=== PATIENT | male | born 1980 | race Caucasian/White ===

== ENCOUNTER 2019-11-29 18:37 | Inpatient (IN) | payer OTHER ==
[~2019-11-29] VITALS: Ht 162.6 cm; Wt 78.0 kg
[2019-11-29 19:40] LABS: BASOPHILS % (AUTO) 0.6 % (0.0-2.0); EOSINOPHILS % (AUTO) 0.7 % (1.0-6.0); HEMATOCRIT 46.6 % (41-53); LYMPHOCYTES # (AUTO) 2.2 K/uL (1.0-4.8); MEAN CORPUSCULAR HEMOGLOBIN 30.4 pg (26.0-34.0); MEAN CORPUSCULAR HGB CONC 34.2 G/dL (31.0-37.0); MEAN CORPUSCULAR VOLUME 89 fL (80-100); MONOCYTES # (AUTO) 0.7 K/uL (0.1-1.0); MONOCYTES % (AUTO) 7.8 % (2.0-9.0); NEUTROPHILS # (AUTO) 6.1 K/uL (1.8-7.7); NEUTROPHILS % (AUTO) 66.9 % (40.0-70.0); PLATELET COUNT (AUTO) 221 K/uL (150-450); RED BLOOD CELL COUNT(AUTO) 5.25 MIL/uL (4.50-5.90); RED CELL DISTRIBUTION WIDTH 13.6 % (11.5-14.5)
[2019-11-29] MEDS ORDERED: LOPERAMIDE HCL 2 MG CAPSULE PO PRN (19:45)
[2019-11-29] MEDS ORDERED: DOCUSATE SODIUM 100 MG CAPSULE PO PRN (19:45)
[2019-11-29] MEDS ORDERED: ALBUTEROL SULFATE HFA 90 MCG/PUFF 8 GM INHALER IH PRN (19:45)
[2019-11-29] MEDS ORDERED: MAGNESIUM HYDROXIDE SUSPENSION 30 ML UDCUP PO PRN (19:45)
[2019-11-29] MEDS ORDERED: CloNIDine HCL 0.1 MG TABLET PO PRN (19:45)
[2019-11-29] MEDS ORDERED: MAG HYDROX/AL HYDROX/SIMETH ES 30 ML SUSPENSION UDCUP PO PRN (19:45)
[2019-11-29] MEDS ORDERED: PETROLATUM,WHITE 28 GM JELLY TP PRN (19:45)
[2019-11-29] MEDS ORDERED: NICOTINE 14 MG/24 HOUR PATCH TD PRN (19:45)
[2019-11-29] MEDS ORDERED: GuaiFENesin/D-METHORPHAN [SUGAR-FREE] 200-20MG/10 ML SYRUP UDCUP PO PRN (19:45)
[2019-11-29] MEDS ORDERED: ONDANSETRON HCL 4 MG TABLET PO PRN (19:45)
[2019-11-29 19:46] LABS: ANION GAP 4 mmol/L (8-16); CALCIUM, TOTAL 9.8 mg/dL (8.8-10.5); CARBON DIOXIDE 32 mmol/L (22-29); CHLORIDE 101 mmol/L (98-107); CREATININE 1.21 mg/dL (0.60-1.30); GLOMERULAR FILTR. RATE CALC > 60 mL/min (>60); GLUCOSE,RANDOM 104 mg/dL (70-110); POTASSIUM 4.9 mmol/L (3.5-5.1); SODIUM SERUM 137 mmol/L (136-145); UREA NITROGEN, BLOOD 17 mg/dL (7-18)
[2019-11-29 19:51] LABS: ALANINE AMINOTRANSFERASE 140 U/L (12-78); ALBUMIN 4.5 g/dL (3.4-5.0); ALKALINE PHOSPHATASE 83 U/L (46-116); ASPARTATE AMINOTRANSFERASE 62 U/L (15-37); BILIRUBIN,TOTAL 0.5 mg/dL (0.1-1.0)
[2019-11-29 20:14] LABS: APPEARANCE,URINE CLEAR (CLEAR); BILIRUBIN,URINE NEGATIVE (NEGATIVE); GLUCOSE, URINE (UA) NEGATIVE (NEGATIVE); KETONES,URINE NEGATIVE (NEGATIVE); LEUKOCYTE ESTERASE ,URINE NEGATIVE (NEGATIVE); NITRATE,URINE NEGATIVE (NEGATIVE); OCCULT BLOOD,URINE NEGATIVE (NEGATIVE); PROTEIN,URINE NEGATIVE (NEGATIVE); UROBILINOGEN,URINE 0.2 mg/dL (<=1.0)
[2019-11-29 20:17] LABS: AMPHET/METH SCREEN,URINE NEGATIVE (NEGATIVE); BARBITURATE SCREEN, URINE NEGATIVE (NEGATIVE); BENZODIAZEPINES SCREEN,URINE NEGATIVE (NEGATIVE); CANNABINOID SCREEN,URINE NEGATIVE (NEGATIVE); COCAINE SCREEN,URINE NEGATIVE (NEGATIVE); METHADONE SCREEN, URINE NEGATIVE (NEGATIVE); OPIATE SCREEN,URINE NEGATIVE (NEGATIVE)
[2019-11-29 20:21] LABS: PHENCYCLIDINE SCREEN,URINE NEGATIVE (NEGATIVE)
[2019-11-29 20:45] VITALS: BP 139/87
[2019-11-29] MEDS: SERTRALINE HCL 50 MG TABLET PO SCH (22:54)
[2019-11-29] MEDS: HydrOXYzine PAMOATE 50 MG CAPSULE PO SCH (22:54)
[2019-11-29] MEDS: RisperiDONE 1 MG TABLET PO SCH (22:54)
[2019-11-30 04:46] VITALS: BP 107/68
[2019-11-30 08:21] VITALS: BP 107/69
[2019-11-30 15:54] VITALS: BP 106/52
[2019-11-30 19:55] VITALS: BP 109/66
[2019-11-30] MEDS: SERTRALINE HCL 50 MG TABLET PO SCH (21:20)
[2019-11-30] MEDS: RisperiDONE 1 MG TABLET PO SCH (21:20)
[2019-11-30] MEDS: HydrOXYzine PAMOATE 50 MG CAPSULE PO SCH (21:20)
[2019-12-01 05:25] VITALS: BP 109/66
[2019-12-01 08:21] VITALS: BP 115/72
[2019-12-01] MEDS: IBUPROFEN 400 MG TABLET PO PRN (08:34)
[2019-12-01 15:10] VITALS: BP 117/72
[2019-12-01] MEDS: SERTRALINE HCL 50 MG TABLET PO SCH (20:15)
[2019-12-01] MEDS: RisperiDONE 1 MG TABLET PO SCH (20:15)
[2019-12-01] MEDS: HydrOXYzine PAMOATE 50 MG CAPSULE PO SCH (20:15)
[2019-12-01 20:30] VITALS: BP 121/69
[2019-12-02 08:06] VITALS: BP 120/71
[2019-12-02] MEDS: IBUPROFEN 400 MG TABLET PO PRN (19:58)
[2019-12-02] MEDS: SERTRALINE HCL 50 MG TABLET PO SCH (19:58)
[2019-12-02] MEDS: HydrOXYzine PAMOATE 50 MG CAPSULE PO SCH (19:58)
[2019-12-02] MEDS: RisperiDONE 1 MG TABLET PO SCH (19:58)
[2019-12-02 20:00] VITALS: BP 126/87
[2019-12-03 08:00] VITALS: BP 105/65
[2019-12-03] MEDS: ACETAMINOPHEN 325 MG TABLET PO PRN (08:23)
[2019-12-03 15:36] VITALS: BP 117/73
[2019-12-03] MEDS: RisperiDONE 1 MG TABLET PO SCH (19:51)
[2019-12-03] MEDS: IBUPROFEN 400 MG TABLET PO PRN (19:52)
[2019-12-03] MEDS: HydrOXYzine PAMOATE 50 MG CAPSULE PO SCH (19:52)
[2019-12-03] MEDS: SERTRALINE HCL 50 MG TABLET PO SCH (19:52)
[2019-12-03 20:25] VITALS: BP 122/75
[2019-12-04 07:46] VITALS: BP 115/77
[2019-12-04 20:05] VITALS: BP 121/76
[2019-12-04] MEDS: RisperiDONE 1 MG TABLET PO SCH (20:05)
[2019-12-04] MEDS: HydrOXYzine PAMOATE 50 MG CAPSULE PO SCH (20:05)
[2019-12-04] MEDS: SERTRALINE HCL 50 MG TABLET PO SCH (20:05)
[2019-12-05 05:46] VITALS: BP 97/76
[2019-12-05 07:40] VITALS: BP 97/60
[2019-12-05 20:02] VITALS: BP 138/79
[2019-12-05] MEDS: HydrOXYzine PAMOATE 50 MG CAPSULE PO SCH (20:41)
[2019-12-05] MEDS: SERTRALINE HCL 50 MG TABLET PO SCH (20:41)
[2019-12-05] MEDS: RisperiDONE 1 MG TABLET PO SCH (20:41)
[2019-12-05] MEDS: ACETAMINOPHEN 325 MG TABLET PO PRN (23:04)
[2019-12-06] MEDS: RisperiDONE 1 MG TABLET PO SCH ×2 (08:21→20:12)
[2019-12-06] MEDS: DIVALPROEX SODIUM 500 MG DR TABLET PO SCH ×2 (08:21→20:12)
[2019-12-06 20:02] VITALS: BP 123/76
[2019-12-06] MEDS: HydrOXYzine PAMOATE 50 MG CAPSULE PO SCH (20:12)
[2019-12-06] MEDS: SERTRALINE HCL 50 MG TABLET PO SCH (20:12)
[2019-12-07] MEDS: DIVALPROEX SODIUM 500 MG DR TABLET PO SCH ×2 (08:27→20:10)
[2019-12-07] MEDS: RisperiDONE 1 MG TABLET PO SCH ×2 (08:27→20:09)
[2019-12-07 08:38] VITALS: BP 104/60
[2019-12-07 16:23] VITALS: BP 120/68
[2019-12-07] MEDS: HydrOXYzine PAMOATE 50 MG CAPSULE PO SCH (20:09)
[2019-12-07] MEDS: SERTRALINE HCL 50 MG TABLET PO SCH (20:10)
[2019-12-07 20:43] VITALS: BP 113/71
[2019-12-07] MEDS ORDERED: HYDR50CA9 PO ×2 (21:15→21:20)
[2019-12-07] MEDS ORDERED: RISP0.5T61 PO ×2 (21:17→21:24)
[2019-12-07] MEDS ORDERED: SERT20OR6 PO (21:22)
[2019-12-07] MEDS ORDERED: SERT50TA12 PO (21:25)
== END 2019-12-08 01:44 | DRG 885 ==
LOC: EMS 18:37 → 6S 19:40
PROVIDERS: ADMIT Internal Medicine; ATTEND Internal Medicine
DX: F25.1 Schizoaffective disorder, depressive type (principal); R45.851 Suicidal ideations; Z91.5 Personal history of self-harm; Z02.89 Encounter for other administrative examinations; F32.9 Major depressive disorder, single episode, unspecified
CPT/HCPCS: 83036; G0480

== ENCOUNTER 2020-02-22 19:46 | Inpatient (IN) | payer OTHER ==
[~2020-02-22] VITALS: Ht 162.6 cm; Wt 75.0 kg
[~2020-02-22 19:46] MED LIST: HYDR50CA9 PO; RISP0.5T61 PO; SERT50TA12 PO
[2020-02-22 20:16] LABS: BASOPHILS % (AUTO) 0.7 % (0.0-2.0); EOSINOPHILS % (AUTO) 0.8 % (1.0-6.0); HEMATOCRIT 43.3 % (41-53); HEMOGLOBIN 14.8 g/dL (13.5-17.5); LYMPHOCYTES # (AUTO) 1.9 K/uL (1.0-4.8); LYMPHOCYTES % (AUTO) 21.6 % (22.0-44.0); MEAN CORPUSCULAR HEMOGLOBIN 30.3 pg (26.0-34.0); MEAN CORPUSCULAR HGB CONC 34.2 G/dL (31.0-37.0); MEAN CORPUSCULAR VOLUME 89 fL (80-100); MONOCYTES # (AUTO) 0.8 K/uL (0.1-1.0); MONOCYTES % (AUTO) 9.1 % (2.0-9.0); NEUTROPHILS # (AUTO) 5.9 K/uL (1.8-7.7); NEUTROPHILS % (AUTO) 67.8 % (40.0-70.0); PLATELET COUNT (AUTO) 224 K/uL (150-450); RED BLOOD CELL COUNT(AUTO) 4.89 MIL/uL (4.50-5.90); RED CELL DISTRIBUTION WIDTH 13.6 % (11.5-14.5)
[2020-02-22 20:56] LABS: ANION GAP 7 mmol/L (8-16); CALCIUM, TOTAL 9.2 mg/dL (8.8-10.5); CARBON DIOXIDE 30 mmol/L (22-29); CHLORIDE 106 mmol/L (98-107); CREATININE 0.98 mg/dL (0.60-1.30); GLOMERULAR FILTR. RATE CALC > 60 mL/min (>60); GLUCOSE,RANDOM 103 mg/dL (70-110); POTASSIUM 4.1 mmol/L (3.5-5.1); SODIUM SERUM 143 mmol/L (136-145); UREA NITROGEN, BLOOD 17 mg/dL (7-18)
[2020-02-22] MEDS ORDERED: BACITRACIN 0.9 GM PACKET OINTMENT TP ONE (21:00)
[2020-02-22 21:05] LABS: ALANINE AMINOTRANSFERASE 92 U/L (12-78); ALBUMIN 3.9 g/dL (3.4-5.0); ALKALINE PHOSPHATASE 107 U/L (46-116); ASPARTATE AMINOTRANSFERASE 40 U/L (15-37); BILIRUBIN,TOTAL 0.2 mg/dL (0.1-1.0); TOTAL PROTEIN, SERUM 7.7 g/dL (6.4-8.2)
[2020-02-22 21:10] LABS: AMPHET/METH SCREEN,URINE NEGATIVE (NEGATIVE); BARBITURATE SCREEN, URINE NEGATIVE (NEGATIVE); BENZODIAZEPINES SCREEN,URINE NEGATIVE (NEGATIVE); CANNABINOID SCREEN,URINE NEGATIVE (NEGATIVE); COCAINE SCREEN,URINE NEGATIVE (NEGATIVE); METHADONE SCREEN, URINE NEGATIVE (NEGATIVE); OPIATE SCREEN,URINE NEGATIVE (NEGATIVE)
[2020-02-22 21:27] LABS: PHENCYCLIDINE SCREEN,URINE NEGATIVE (NEGATIVE)
[2020-02-22] MEDS ORDERED: ACETAMINOPHEN 325 MG TABLET PO PRN (22:00)
[2020-02-22] MEDS ORDERED: ONDANSETRON HCL 4 MG/2 ML VIAL IVP PRN (22:00)
[2020-02-22 22:32] LABS: THYROID STIMULATING HORMONE 9.81 uIU/mL (0.36-3.74)
[2020-02-22 23:33] VITALS: BP 126/91
[2020-02-23] MEDS ORDERED: LEVO50 PO (03:26)
[2020-02-23 08:02] VITALS: BP 111/72
[2020-02-23] MEDS: ENOXAPARIN SODIUM 40 MG/0.4 ML PF SYRINGE SQ SCH (08:26)
[2020-02-23] MEDS: NEOMYCIN/BACITRACIN/POLYMYXIN B OINTMENT PACKET TP SCH (10:49)
[2020-02-23] MEDS ORDERED: RisperiDONE 1 MG TABLET PO ONE (11:45)
[2020-02-23 19:20] VITALS: BP 132/88
[2020-02-23] MEDS: HydrOXYzine PAMOATE 50 MG CAPSULE PO SCH (20:35)
[2020-02-23] MEDS: SERTRALINE HCL 50 MG TABLET PO SCH (20:35)
[2020-02-23] MEDS: RisperiDONE 2 MG TABLET PO SCH (20:38)
[2020-02-23] MEDS ORDERED: RisperiDONE 0.5 MG TABLET PO SCH (21:00)
[2020-02-24 05:50] VITALS: BP 119/63
[2020-02-24] MEDS: LEVOTHYROXINE SODIUM 50 MCG TABLET PO SCH (06:03)
[2020-02-24] MEDS: RisperiDONE 2 MG TABLET PO SCH ×2 (08:02→20:51)
[2020-02-24] MEDS: ENOXAPARIN SODIUM 40 MG/0.4 ML PF SYRINGE SQ SCH (08:02)
[2020-02-24] MEDS: NEOMYCIN/BACITRACIN/POLYMYXIN B OINTMENT PACKET TP SCH (08:02)
[2020-02-24 08:05] VITALS: BP 112/74
[2020-02-24 16:26] VITALS: BP 120/75
[2020-02-24 19:10] VITALS: BP 129/76
[2020-02-24] MEDS: HydrOXYzine PAMOATE 50 MG CAPSULE PO SCH (20:51)
[2020-02-24] MEDS: SERTRALINE HCL 50 MG TABLET PO SCH (20:51)
[2020-02-25] MEDS: LEVOTHYROXINE SODIUM 50 MCG TABLET PO SCH (05:49)
[2020-02-25 05:50] VITALS: BP 113/74
[2020-02-25 07:51] VITALS: BP 128/65
[2020-02-25] MEDS: RisperiDONE 2 MG TABLET PO SCH ×2 (08:25→19:58)
[2020-02-25] MEDS: NEOMYCIN/BACITRACIN/POLYMYXIN B OINTMENT PACKET TP SCH (08:25)
[2020-02-25] MEDS: ENOXAPARIN SODIUM 40 MG/0.4 ML PF SYRINGE SQ SCH (08:25)
[2020-02-25 19:29] VITALS: BP 136/88
[2020-02-25] MEDS: SERTRALINE HCL 50 MG TABLET PO SCH (19:58)
[2020-02-25] MEDS: HydrOXYzine PAMOATE 50 MG CAPSULE PO SCH (19:58)
[2020-02-26] MEDS: LEVOTHYROXINE SODIUM 50 MCG TABLET PO SCH (06:32)
[2020-02-26 07:38] VITALS: BP 113/80
[2020-02-26] MEDS: ENOXAPARIN SODIUM 40 MG/0.4 ML PF SYRINGE SQ SCH (08:20)
[2020-02-26] MEDS: NEOMYCIN/BACITRACIN/POLYMYXIN B OINTMENT PACKET TP SCH (08:20)
[2020-02-26] MEDS: RisperiDONE 2 MG TABLET PO SCH ×2 (08:20→19:58)
[2020-02-26 19:25] VITALS: BP 121/83
[2020-02-26] MEDS: SERTRALINE HCL 50 MG TABLET PO SCH (19:58)
[2020-02-26] MEDS: HydrOXYzine PAMOATE 50 MG CAPSULE PO SCH (19:58)
[2020-02-27 05:03] VITALS: BP 115/84
[2020-02-27] MEDS: LEVOTHYROXINE SODIUM 50 MCG TABLET PO SCH (06:39)
[2020-02-27 08:07] VITALS: BP 117/76
[2020-02-27] MEDS: ENOXAPARIN SODIUM 40 MG/0.4 ML PF SYRINGE SQ SCH (08:11)
[2020-02-27] MEDS: NEOMYCIN/BACITRACIN/POLYMYXIN B OINTMENT PACKET TP SCH (08:11)
[2020-02-27] MEDS: RisperiDONE 2 MG TABLET PO SCH ×2 (08:11→20:00)
[2020-02-27 16:01] VITALS: BP 120/71
[2020-02-27 19:34] VITALS: BP 125/77
[2020-02-27] MEDS: SERTRALINE HCL 50 MG TABLET PO SCH (20:00)
[2020-02-27] MEDS: HydrOXYzine PAMOATE 50 MG CAPSULE PO SCH (20:00)
[2020-02-28 04:29] VITALS: BP 100/61
[2020-02-28] MEDS: LEVOTHYROXINE SODIUM 50 MCG TABLET PO SCH (05:58)
[2020-02-28] MEDS: ENOXAPARIN SODIUM 40 MG/0.4 ML PF SYRINGE SQ SCH (07:57)
[2020-02-28] MEDS: RisperiDONE 2 MG TABLET PO SCH (07:57)
[2020-02-28] MEDS: NEOMYCIN/BACITRACIN/POLYMYXIN B OINTMENT PACKET TP SCH ×2 (07:57→08:10)
[2020-02-28] MEDS: SERTRALINE HCL 50 MG TABLET PO SCH (07:57)
== END 2020-02-28 17:15 | DRG 885 ==
LOC: EMS 19:46 → 6S 21:30
PROVIDERS: ADMIT Internal Medicine; ATTEND Internal Medicine
DX: F31.4 Bipolar disorder, current episode depressed, severe, without psychotic features (principal); F41.1 Generalized anxiety disorder; E03.9 Hypothyroidism, unspecified; F11.10 Opioid abuse, uncomplicated
CPT/HCPCS: 82607; 84443; G0480; J1650